=== PATIENT | female | born 1960 | race Caucasian/White ===

== ENCOUNTER → 2019-04-10 | Outpatient (CLI) | payer OTHER ==
[2015-11-16 13:05] VITALS: BP 115/74
[~2019-04-10] MED LIST: ATOR10TA60 PO; CITA20TA6 PO; INSU100I13 SQ; LISI10TA2 PO; NAPR-514 PO; TIZA4TAB2 PO
--- NOTE | 2019-04-10 10:20 | RAD ---
PROCEDURE: LUMBAR SPINE 2-3V STUDY DATE: 04/10/2019 CLINICAL INDICATION / HISTORY: Low back pain. TECHNIQUE: AP and lateral views of the lumbar spine COMPARISON: No relevant comparisons currently available FINDINGS: 5 lumbar segments are identified. The lumbar vertebral body heights are normal in height. The alignment shows grade 1 anterolisthesis of L4 on L5. The bones are mildly osteopenic and show multilevel facet hypertrophic changes. No acute fracture or aggressive appearing osseous lesions are seen. Disc spaces show mild narrowing at L4-L5. The visualized hips and sacroiliac joints are unremarkable. IMPRESSION: Mild multilevel lumbar spinal degenerative spondylosis with facet hypertrophic change and anterolisthesis of L4-L5. No fracture or aggressive osseous lesions noted. Electronically signed by: Rosa Fry MD (04/10/2019 10:17 AM) [id number]
== END | disposition home or self-care (01) ==
LOC: RAD 09:17
PROVIDERS: ATTEND Family Medicine
DX: M48.061 Spinal stenosis, lumbar region without neurogenic claudication (principal); M47.816 Spondylosis without myelopathy or radiculopathy, lumbar region; M89.38 Hypertrophy of bone, other site
CPT/HCPCS: 72100